=== PATIENT | male | born 1975 | race Caucasian/White ===

== ENCOUNTER 2017-08-30 00:52 | Emergency (ER) | payer MEDICAID, OTHER ==
[~2017-08-30] VITALS: Ht 170.2 cm; Wt 73.0 kg
[2017-08-30 01:26] VITALS: BP 110/72
== END 2017-08-30 03:17 | disposition left against medical advice (07) ==
LOC: ER 00:52
DX: R10.9 Unspecified abdominal pain (principal); Z53.21 Procedure and treatment not carried out due to patient leaving prior to being seen by health care provider